=== PATIENT | female | born 1945 | race Caucasian/White ===

== ENCOUNTER → 2019-07-19 15:16 | Outpatient (BNVA) | payer MEDICARE, SELFPAY | PROVIDERS: Family Provider Nurse Practitioner; PCP Nurse Practitioner; Visit Provider Family Medicine | DX: E78.2 Mixed hyperlipidemia (principal); I10 Essential (primary) hypertension | CPT/HCPCS: 80053; 80061; 84443; 85025 ==

== ENCOUNTER → 2020-03-05 11:41 | Outpatient (BNVA) | payer MEDICARE, SELFPAY | PROVIDERS: Family Provider Nurse Practitioner; PCP Nurse Practitioner; Visit Provider Family Medicine | DX: E78.5 Hyperlipidemia, unspecified (principal); I10 Essential (primary) hypertension | CPT/HCPCS: 80053; 80061; 85025 ==

== ENCOUNTER → 2020-05-15 10:45 | Outpatient (BNVA) | payer MEDICARE, SELFPAY | PROVIDERS: Family Provider Nurse Practitioner; PCP Nurse Practitioner; Visit Provider Family Medicine | DX: M79.10 Myalgia, unspecified site (principal); R25.2 Cramp and spasm; E55.9 Vitamin D deficiency, unspecified | CPT/HCPCS: 80048; 82306; 83735; 85651; 86038 ==

== ENCOUNTER 2021-03-21 08:14 | Outpatient (CLI) | payer MEDICARE, MEDICAID, SELFPAY ==
--- NOTE | 2021-03-21 | CT_ITS ---
WS: [id number] CT ABDOMEN AND PELVIS WITH CONTRAST HISTORY: ABDOMINAL PAIN TECHNIQUE: Imaging performed of the abdomen and pelvis with IV contrast. Single phase imaging of the abdomen. Coronal and sagittal reformats are submitted. All CT scans at [facility] use at [address] one of these dose optimization techniques: automated exposure control; mA and/or kV adjustment per patient size (includes targeted exams where dose is matched to clinical indication); or iterative re construction. IV CONTRAST: Omnipaque 300; 95 mL IV. Oral contrast: Yes. DLP: 1055.45 mGycm COMPARISON: 03/06/2018 Lower thorax: Lung bases are clear. Heart is normal size. Moderate size hiatal hernia similar to the prior exam. Liver/biliary system: Normal size liver. Stable 3 mm hypodensity in the superior RIGHT liver. No bile duct dilatation. Normal portal vein. Gallbladder: Normal. No gallstones or wall thickening. No pericholecystic fluid. Pancreas: Normal size pancreas and pancreatic duct. No adjacent inflammation. Spleen: Normal size spleen. No mass or infarct. Adrenal glands: Normal. Right kidney: Multiple cortical hypodensities. Majority of these are too small to characterize stable since 2018. The largest is exophytic from the upper pole with a maximum diameter of 1.6 cm and stabl e. Left kidney: Large simple cyst from the upper pole measures 4.9 x 4.6 cm and stable. There is no fer l obstruction. There are a few additional hypodensities which are stable and too small to characteriz e. Aorta: Mild atherosclerosis with no aneurysm. Lymphadenopathy: None. Free fluid: None. GI tract: Normal appendix. Mild diffuse constipation. No GI tract obstruction or obstructing lesions identified. No significant diverticular disease. Abdominal wall: Unremarkable abdominal wall. No hernia. Pelvis: Prior hysterectomy. Prior urinary bladder suspension surgery. The visualized urinary bladder and pelvic structures are normal. No mass or fluid. Bones: Mild bilateral narrowing of the hip joints. Mild facet arthritis in the lower lumbar spine. CT/CT abdomen pelvis w con* [id number] IMPRESSION: 1. No acute abdominal or pelvic abnormalities. 2. Normal appendix. 3. Bilateral renal cysts and too small to characterize hypodensities but stabl e since 2018. 4. Mild atherosclerosis aorta. 5. Mild constipation.
[2021-03-21] MEDS: iohexol 300 mg/mL 50 mL Btl PO (09:00)
[2021-03-21] MEDS: iohexol 300 mg/mL 100 mL Btl IV (10:15)
== END 2021-03-21 08:15 | disposition home or self-care (01) ==
PROVIDERS: PCP Nurse Practitioner; Visit Provider Family Medicine
DX: R10.13 Epigastric pain (principal); R74.8 Abnormal levels of other serum enzymes; K59.00 Constipation, unspecified; I70.0 Atherosclerosis of aorta; Q61.02 Congenital multiple renal cysts
CPT/HCPCS: 74177; Q9967

== ENCOUNTER 2021-06-12 17:35 | Emergency (ER) | payer MEDICARE, MEDICAID, SELFPAY ==
[2021-06-12 17:55] VITALS: BP 220/106; PULSE 71; RESP 16; TEMP 36.6; O2SAT 97
--- NOTE | 2021-06-12 20:19 | ED_ITS ---
HPI - Animal Bite General: Chief Complaint: Animal Bite Stated Complaint: CAT BITE ON FINGER Time Seen by Provider: 06/12/21 18:07 History of Present Illness: HPI narrative: Cat bite to right forefinger. It was a wild cat that Nadya has been taking care of since . He has not had any vaccinations. Cat has not been acting abnormal. She went and get rid the cat after better. complaint: animal bite Onset (ago): hour(s) Animal: cat Description of animal: wild animal Mechanism: bite Location: other (Finger) Location - Extremities: Right: hand Pain description: sharp Severity scale (1-10): 1 Context: playing with animal Associated symptoms: Reports no associated symptoms; Deny chills, fever(s) or headache(s) Review of Systems Const: Denies: fever(s), chills or body aches Eyes: Denies: change in vision or blurry vision ENMT: Denies: throat pain or nasal congestion Card: Denies: chest pain or dyspnea on exertion Resp: Denies: dyspnea, productive cough or non-productive cough GI: Denies: abdominal pain, nausea or vomiting Musc: Denies: extremity pain Skin/Breast: Reports: other (Laceration right finger); Denies: rash Neuro: Denies: headache(s) Psych: Denies: anxiety or depression Dayron/Lymph: Denies: easy bruising PFSH ED PFSH: Medical History Hyperlipidemia Hypertension Surgical History History of hysterectomy (~2001) Social History Smoking and tobacco status: former smoker Alcohol intake: never Marital status: / Current occupational status: unemployed Physical Exam Const: COMMON NORMALS: no acute distress GENERAL APPEARANCE: cooperative Psych: COMMON NORMALS: mental status grossly normal Skin: OTHER: Lac right finger. Wound left open due to pain cat bite no need for stitches wound approximately 2 mm long. Course Vital Signs: Vital signs: Vital Signs Temperature 97.9 F 06/12/21 17:55 Pulse Rate 71 06/12/21 17:55 Respiratory Rate 16 06/12/21 17:55 Blood Pressure 220/106 06/12/21 17:55 Pulse Oximetry 97 06/12/21 17:55 Discharge Plan Discharge Prescriptions: No Action krill oil 500 mg capsule 500 mg PO DAILY RF: 0 coenzyme Q10 10 mg capsule 10 mg PO DAILY RF: 0 Tart Quiñonez Extract 1,000 mg capsule 1,000 mg PO DAILY RF: 0 ascorbate calcium (vitamin C) 500 mg tablet 500 mg PO DAILY RF: 0 Complete Multivitamin Tablet 1 tab PO DAILY RF: 0 cholecalciferol (vitamin D3) 100 mcg (4,000 unit) capsule 100 mcg PO DAILY RF: 0 diclofenac sodium [Voltaren Arthritis Pain] 1 % gel 2 g topical QID Qty: 100 RF: 0 telmisartan [Micardis] 40 mg tablet 40 mg PO DAILY Qty: 30 RF: 3 atorvastatin 40 mg tablet 40 mg PO DAILY Qty: 30 RF: 4 metoprolol succinate 100 mg tablet extended release 24 hr See Rx Instructions .ROUTE .COMPLEX Qty: 30 RF: 2 Coding Level of Care Code 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
[2021-06-12] MEDS: clindamycin 150 mg Capsule 300 MG PO (21:15)
[2021-06-12] MEDS: rabies vaccine 2.5 unit SDV IM (21:15)
== END 2021-06-12 21:57 | disposition home or self-care (01) ==
PROVIDERS: Emergency Provider Nurse Practitioner Family; PCP Family Medicine
DX: S61.250A Open bite of right index finger without damage to nail, initial encounter (principal); W55.01XA Bitten by cat, initial encounter; I10 Essential (primary) hypertension; E78.5 Hyperlipidemia, unspecified; Z87.891 Personal history of nicotine dependence; Z23 Encounter for immunization; Z20.3 Contact with and (suspected) exposure to rabies; Z29.14 Encounter for prophylactic rabies immune globulin
CPT/HCPCS: 90375; 90471; 90675; 96372; 99283

== ENCOUNTER 2021-06-15 11:02 | Emergency (ER) | payer MEDICARE, MEDICAID, SELFPAY ==
[2021-06-15 11:24] VITALS: BP 218/104; PULSE 60; RESP 14; TEMP 36.7; O2SAT 99
--- NOTE | 2021-06-15 11:44 | ED_ITS ---
HPI - Recheck/Abnormal Lab/Rx General: Chief Complaint: Recheck/Abnormal Lab/Rx Stated Complaint: RABIS VAC Time Seen by Provider: 06/15/21 11:38 Source: patient Mode of arrival: ambulatory Limitations: no limitations History of Present Illness: HPI narrative: Patient is a nice 75-year-old female presents to ED today for her day 3 rabies immunization. Patient was seen in our facility on 06/12 after a cat bite to her right middle finger. On that visit rabies immunoglobulin and rabies immunization were administered and patient was discharged home on oral antibiotics. Patient states her bite is healing well without signs of infection. She is doing well on the oral antibiotics. complaint: wound re-check and other (rabies series) Initial visit for: animal bite Returns today for: rabies shot Symptoms since prior visit: no new symptoms and improved Associated symptoms: none Review of Systems Const: Denies: fever(s), chills, body aches, fatigue or malaise GI: Denies: nausea or vomiting Musc: Denies: extremity pain, extremity swelling, joint pain or joint swelling Skin/Breast: Reports: other (cat bite to R middle finger; healing well ) Neuro: Denies: numbness in extremities, weakness in extremities or sensory changes PFS ED PFSH: Medical History (Updated 06/15/21 @ 11:52 by DELFINA Krishnan) Hyperlipidemia Hypertension Surgical History History of hysterectomy (~2001) Social History Smoking and tobacco status: former smoker Alcohol intake: never Marital status: / Current occupational status: unemployed Physical Exam Const: COMMON NORMALS: no acute distress, average body habitus, patient oriented x3, no limitations, healthy appearing, alert and well nourished HENMT: COMMON NORMALS: normocephalic and atraumatic HEAD & SCALP: normocephalic and atraumatic Extremity: NARRATIVE EXTREMITY EXAM: cat bite to R middle finger w/o redness/drainage Neuro: ESMER COMA SCALE: document GCS findings Savannah coma scale eye opening: Spontaneous Esmer coma scale verbal response: Orientated Esmer coma scale motor response: Obey commands Esmer coma scale total score: 15 COMMON NORMALS: patient oriented x3, moves all extremities, no focal motor deficits, no sensory deficits noted and gait normal SENSORIUM/ORIENTATION: Yes alert Course Vital Signs: Vital signs: Vital Signs Temperature 98.0 F 06/15/21 11:24 Pulse Rate 60 06/15/21 11:24 Respiratory Rate 14 06/15/21 11:24 Blood Pressure 218/104 06/15/21 11:24 Pulse Oximetry 99 06/15/21 11:24 MDM - Recheck/Abnormal Lab/Rx MDM Narrative: Medical decision making narrative: Patient given rabies immunization. Recommend continue series for repeat immunization on day 7, 14. Discharge Plan Discharge Patient Disposition: Home Clinical Impression: Need for immunization against rabies Condition: Stable Prescriptions: No Action krill oil 500 mg capsule 500 mg PO DAILY RF: 0 coenzyme Q10 10 mg capsule 10 mg PO DAILY RF: 0 Tart Quiñonez Extract 1,000 mg capsule 1,000 mg PO DAILY RF: 0 ascorbate calcium (vitamin C) 500 mg tablet 500 mg PO DAILY RF: 0 Complete Multivitamin Tablet 1 tab PO DAILY RF: 0 cholecalciferol (vitamin D3) 100 mcg (4,000 unit) capsule 100 mcg PO DAILY RF: 0 diclofenac sodium [Voltaren Arthritis Pain] 1 % gel 2 g topical QID Qty: 100 RF: 0 telmisartan [Micardis] 40 mg tablet 40 mg PO DAILY Qty: 30 RF: 3 atorvastatin 40 mg tablet 40 mg PO DAILY Qty: 30 RF: 4 metoprolol succinate 100 mg tablet extended release 24 hr See Rx Instructions .ROUTE .COMPLEX Qty: 30 RF: 2 clindamycin HCl 300 mg capsule 300 mg PO Q8H 7 Days Qty: 21 RF: 0 Discharge Orders: Discharge ED (Routine); Ordered 06/15/21 Ordered By: Geno Wolff Referrals: Stephon Santamaria MD [Primary Care Provider] - Patient Instructions: Rabies Vaccine (By injection) Coding Level of Care Code ED [employer] 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
[2021-06-15] MEDS: rabies vaccine 2.5 unit SDV IM (11:57)
== END 2021-06-15 12:06 | disposition home or self-care (01) ==
PROVIDERS: Emergency Provider Physician Assistant; PCP Family Medicine
DX: Z29.14 Encounter for prophylactic rabies immune globulin (principal); Z20.3 Contact with and (suspected) exposure to rabies; I10 Essential (primary) hypertension; E78.5 Hyperlipidemia, unspecified; Z87.891 Personal history of nicotine dependence; Z23 Encounter for immunization
CPT/HCPCS: 90471; 90675; 99282

== ENCOUNTER → 2022-07-28 15:45 | Outpatient (BNVA) | payer MEDICARE, MEDICAID, SELFPAY | PROVIDERS: PCP Family Medicine; Visit Provider Family Medicine | DX: Z51.81 Encounter for therapeutic drug level monitoring (principal); E78.2 Mixed hyperlipidemia; Z13.220 Encounter for screening for lipoid disorders; Z23 Encounter for immunization; E55.9 Vitamin D deficiency, unspecified | CPT/HCPCS: 80053; 80061; 85025 ==

== ENCOUNTER 2023-01-15 17:16 | Emergency (ER) | payer MEDICARE, MEDICAID, SELFPAY ==
[2023-01-15 17:24] VITALS: BP 226/103; PULSE 64; RESP 17; TEMP 36.4; O2SAT 99; BMI 27.1
--- NOTE | 2023-01-15 17:40 | ED_ITS ---
HPI - Allergic Reaction General: Chief complaint: Allergic Reaction Stated complaint: wasp sting/ hard to breath Time Seen by Provider: 01/15/23 17:18 History of Present Illness: HPI narrative: 77-year-old female comes in today with complaints of a wasp sting to the right axilla. Patient had taken 25 mg of diphenhydramine prior to coming to the ER. Patient reports feeling better since arriving to the ER reports no chest pain, shortness of breath, or nausea or vomiting. Patient appears nontoxic. Patient reports that she does have an EpiPen at home but did not use it due to the age of the EpiPen. Patient was concerned that she may need a refill for her EpiPen and came into the ER for treatment. Associated symptoms: Deny nausea or vomiting Review of Systems Const: Denies: fever(s) Card: Denies: chest pain Resp: Denies: dyspnea GI: Denies: nausea or vomiting Skin/Breast: Reports: new lesions PFS ED PFSH: Medical History History of trigger finger Dr Barnes Hyperlipidemia Hypertension Surgical History History of hysterectomy (~2001) Hx of cataract extraction Bilateral Social History Smoking and tobacco status: never smoked Alcohol intake: never Substance/Drug Use: never Marital status: / Current occupational status: unemployed Physical Exam Const: COMMON NORMALS: alert HENMT: COMMON NORMALS: normocephalic HEAD & SCALP: normocephalic MOUTH: Normal oral and palatal mucosa present THROAT: posterior oropharynx normal Neck/C-Spine: COMMON NORMALS: full ROM Resp: COMMON NORMALS: normal respiratory effort and clear to auscultation bilaterally AUSCULTATION: clear to auscultation bilaterally Cardio: COMMON NORMALS: regular rate and regular rhythm RATE: regular rate RHYTHM: regular rhythm GI: COMMON NORMALS: Soft to palpation and non-tender PALPATION: Yes Soft to palpation Extremity: COMMON NORMALS: no pedal edema Neuro: SENSORIUM/ORIENTATION: Yes alert Skin: LESIONS: lesion noted (Punctate lesion with surrounding erythema and swelling right axilla) Course Vital Signs: Vital signs: Vital Signs Temperature 97.6 F 01/15/23 17:24 Pulse Rate 64 01/15/23 17:24 Respiratory Rate 17 01/15/23 17:24 Blood Pressure 226/103 01/15/23 17:24 Pulse Oximetry 99 01/15/23 17:24 Oxygen Delivery Me thod Room Air 01/15/23 17:24 MDM - Allergic Reaction Medical Decision Making 77-year-old female comes in today with a wasp sting to the right axilla. Patient reports she was going outside when the wasp came down and stung her to the right axilla. On exam there is a area of redness with mild swelling approximately 4 cm circular with a centralized punctate lesion. Respirations are even lungs are clear to auscultation. Vital signs are normal except for some elevated blood pressure. Patient reports this is her normal blood pressure range and she does manage it with medications at home and denies any other symptoms such as severe headache or shortness of breath. Differential diagnosis includes anaphylaxis, allergic reaction, localized reaction to wasp sting. No signs of anaphylaxis or severe allergic reaction was noted at this time. Patient does have a localized reaction to the wasp sting. Reviewed exam with recommendations for treatment and follow-up. Patient reported understanding and agreed to plan. EpiPen was renewed. Discharge Plan Discharge Patient Disposition: Home Clinical Impression: Accidental wasp sting Condition: Stable Prescriptions: New Auvi-Q 0.3 mg/0.3 mL auto-injector 0.3 mg IM Q10M PRN (Reason: anaphylaxis) Qty: 2 0RF Rx Instructions: for 2 doses No Action hydrochlorothiazide 25 mg tablet 25 mg PO DAILY Qty: 30 6RF metoprolol succinate 100 mg tablet extended release 24 hr See Rx Instructions .ROUTE .COMPLEX Qty: 90 3RF Dose Instruction: TAKE 1 TABLET EVERY DAY Rx Instructions: TAKE 1 TABLET EVERY DAY atorvastatin 40 mg tablet See Rx Instructions .ROUTE .COMPLEX Qty: 90 2RF Dose Instruction: TAKE 1 TABLET EVERY NIGHT Rx Instructions: TAKE 1 TABLET EVERY NIGHT telmisartan 40 mg tablet See Rx Instructions .ROUTE .COMPLEX Qty: 90 3RF Dose Instruction: TAKE 1 TABLET EVERY DAY Rx Instructions: TAKE 1 TABLET EVERY DAY Discharge Orders: Discharge ED (Routine); Ordered 01/15/23 Ordered By: Jason Jeong Referrals: Stephon Santamaria MD [Primary Care Provider] - Discharge Diet: Usual diet Discharge Activity: Increase activity as tolerated Patient Instructions: Anaphylaxis (ED) Activity Restrictions/Additional Instructions: Home and rest. Continue with diphenhydramine, Benadryl, 25 mg 1 tablet every 4 hours as needed for itching or symptoms while sting. You can use acetaminophen or ibuprofen for pain. You can use topical hydrocortisone cream for further inflammation and irritation of the wasp sting area. Follow-up with primary care as needed. Return to ED for worsening symptoms or new concerns. Coding Level of Care Code ED Process Laboratory Specialist for Tana Barlow
[2023-01-15 17:57] VITALS: PULSE 59; O2SAT 99
== END 2023-01-15 17:58 | disposition home or self-care (01) ==
PROVIDERS: Emergency Provider Nurse Practitioner Family; PCP Family Medicine
DX: T63.461A Toxic effect of venom of wasps, accidental (unintentional), initial encounter (principal); I10 Essential (primary) hypertension; E78.5 Hyperlipidemia, unspecified
CPT/HCPCS: 99283

== ENCOUNTER → 2024-03-09 11:27 | Outpatient (BNVA) | payer MEDICARE, MEDICAID, SELFPAY | PROVIDERS: PCP Family Medicine; Visit Provider Family Medicine | DX: Z51.81 Encounter for therapeutic drug level monitoring (principal); E55.9 Vitamin D deficiency, unspecified; I10 Essential (primary) hypertension; Z78.0 Asymptomatic menopausal state; Z13.220 Encounter for screening for lipoid disorders | CPT/HCPCS: 80053; 80061; 82306; 85025 ==

== ENCOUNTER 2024-03-16 12:13 | Outpatient (CLI) | payer MEDICARE, SELFPAY ==
--- NOTE | 2024-03-16 13:00 | XR_ITS ---
WS: [id number] DEXA (DUAL ENERGY X-RAY ABSORPTIOMETRY) Bone mineral density was performed using a [employer] machine. HISTORY: Postmenopausal COMPARISON: None available. Lumbar spine BMD (L1-L4): 1.140 g/cm2 T score: -0.3 Z score: 1.5 Total hip BMD: Left: 0.852 g/cm2. T score: -1.2 Z score: 0.8 Right: 0.890 g/cm2. T score: -0.9 Z score: 1.1 10 year probability of a major osteoporotic fracture is 14.4%. XR/XR DEXA axial skeleton* [id number] IMPRESSION: OSTEOPENIA based upon the WHO classification for females.
== END 2024-03-16 12:14 | disposition home or self-care (01) ==
LOC: RAD 12:13
PROVIDERS: PCP Family Medicine; Visit Provider Family Medicine
DX: Z13.820 Encounter for screening for osteoporosis (principal); Z78.0 Asymptomatic menopausal state; M85.80 Other specified disorders of bone density and structure, unspecified site
CPT/HCPCS: 77080

== ENCOUNTER 2024-06-25 05:30 | Emergency (ER) | payer MEDICARE, SELFPAY ==
[2024-06-25 05:43] VITALS: BP 227/109; PULSE 71; RESP 20; TEMP 36.6; O2SAT 99; BMI 27.1
--- NOTE | 2024-06-25 06:16 | CTR_ITS ---
PROCEDURE INFORMATION: Exam: CT Head Without Contrast Exam date and time: 06/25/2024 6:23 AM Age: 78 years old Clinical indication: Injury or trauma; Fall; Blunt trauma (contusions or hematomas) TECHNIQUE: Imaging protocol: Computed tomography of the head without contrast. Radiation optimization: All CT scans at this facility use at least one of these dose optimization techniques: automated exposure control; mA and/or kV adjustment per patient size (includes targeted exams where dose is matched to clinical indication); or iterative reconstruction. COMPARISON: No relevant prior studies available. RADIATION DOSE METRICS: Total DLP (mGy-cm): 941.68 FINDINGS: Brain: Generalized global atrophy. No intracranial masses or mass effect. No midline shift. No abnormal extra-axial collections. No acute intracranial hemorrhage. Patchy hypodensity in the periventricular and subcortical white matter in keeping with chronic microvascular ischemic changes. Cerebral ventricles: Prominence of the ventricles commensurate with atrophy. No bobby hydrocephalus. Paranasal sinuses: Visualized sinuses are unremarkable. No fluid levels. Mastoid air cells: Visualized mastoid air cells are well aerated. Bones: Unremarkable. No acute fracture. Soft tissues: Unremarkable. CT/CT head wo con* [id number] IMPRESSION: No acute intracranial findings.
--- NOTE | 2024-06-25 06:17 | XRR_ITS ---
PROCEDURE INFORMATION: Exam: XR Pelvis Exam date and time: 06/25/2024 6:26 AM Age: 78 years old Clinical indication: Injury or trauma; Fall; Blunt trauma (contusions or hematomas); Bilateral; Pelvic region TECHNIQUE: Imaging protocol: Radiologic exam of the pelvis. Views: 1 or 2 view. COMPARISON: CT abdomen pelvis w con* [id number] 03/21/2021 9:59 AM FINDINGS: Bones/joints: No radiographic evidence of fracture. Soft tissues: There has been inguinal hernia repairs. XR/XR pelvis 1-2V* [id number] IMPRESSION: No radiographic evidence of fracture.
--- NOTE | 2024-06-25 06:20 | W.ED.FALL ---
HPI - Fall General: Chief Complaint: Fall Stated Complaint: dizzy fall hit head tailbone Time Seen by Provider: 06/25/24 06:15 History of Present Illness: 78-year-old female presents emergency department ambulatory with 2 of her daughters. Patient states that last night around 4 AM her granddaughter let her dog out. When the dog came back in the house, it was covered in snow because it has thick curly for her. She was dusting it off and cleaning up the snow. She had been bent over to do this. When she stood back up, she got a little lightheaded and dizzy and lost her balance. She reports that she did not lose consciousness but she was off balance enough she could not correct and fell backwards landing on her tailbone and hit the back of her head. She reports no loss of consciousness, did not feel dazed , no vomiting, no nausea, no confusion. She has not had any neurologic symptoms. Patient reports that her daughters insisted that she come get checked out. Patient declines any pain medication. She reports she has been ambulatory since the incident and does not think she has any broken bones. No pain of the spine/neck. Patient reports a mild soreness in the occipital area when she palpates and some mild soreness over her SI joints and tailbone when she palpates. Associated symptoms-after fall: Denies abdominal pain, chest pain, difficulty walking, headache(s) or neck pain Related Data Previous Rx's Medication Instructions Recorded epinephrine 0.3 mg/0.3 mL 0.3 mg (0.3 mL) IM Q10M PRN 07/06/23 injection, auto-injector (Auvi-Q) anaphylaxis #2 ea atorvastatin 40 mg tablet See Rx Instructions .Route 04/04/24 .COMPLEX #90 tabs metoprolol succinate 100 mg See Rx Instructions .Route 04/04/24 tablet,extended release 24 hr .COMPLEX #90 tabs Allergies Allergy/AdvReac Type Severity Reaction Status Date / Time amlodipine [From Norvasc] Allergy Unknown Verified 06/26/21 10:25 doxycycline Allergy Unknown Verified 06/26/21 10:25 lidocaine Allergy resp Verified 06/26/21 10:25 problems Penicillins Allergy hives Verified 06/26/21 10:25 triamcinolone [From Kenalog] Allergy Unknown Verified 06/26/21 10:25 Review of Systems General: Reports: 10 or more systems reviewed and unremarkable except in HPI and below Eyes: Denies: change in vision Card: Denies: chest pain, edema or syncope Resp: Denies: dyspnea or productive cough GI: Denies: abdominal pain, nausea, vomiting or diarrhea Musc: Denies: neck pain, back pain, extremity pain or extremity swelling Skin/Breast: Denies: rash or erythema Neuro: Denies: headache(s), numbness in extremities, weakness in extremities, lack of coordination or difficulty walking [facility] ED PFSH: Medical History History of trigger finger Dr Barnes Hypertension Hyperlipidemia Surgical History Hx of cataract extraction Bilateral History of hysterectomy (~2001) Family History Father CAD (coronary artery disease) Mother Spastic paralysis Sister Spastic paralysis Social History (Updated 03/09/24 @ 10:57 by Stephon Santamaria MD) Smoking and tobacco/nicotine status: never used tobacco/nicotine Alcohol intake: never Substance/Drug Use: never Marital status: / Current occupational status: unemployed 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 She is neurologically normal. Palpation of the neck and spine was unremarkable. C-spine cleared by Nexus criteria. No external stigmata of injury on the scalp, pain particular attention to the occiput. Palpation of both lower extremities from the toes up to the pelvis revealed only mild tenderness over the SI joints. She tolerates axial loading and distraction through both hips. Range of motion of the knees and hips was uninhibited. Patient reports she has some chronic pain in her knees which she can feel when I passively bend them but no new pain. Const: COMMON NORMALS: no limitations, alert and well nourished EXAM LIMITATIONS: no altered mental status HENMT: COMMON NORMALS: normocephalic, atraumatic and external ears normal HEAD & SCALP: normocephalic and atraumatic EXTERNAL EAR: Yes external ears normal MOUTH: no muffled voice Eye: COMMON NORMALS: EOMs intact bilaterally, conjunctivae normal and no scleral icterus CONJUNCTIVA: Yes conjunctivae normal Neck/C-Spine: GENERAL: Yes normal visual inspection and Yes trachea midline Resp: COMMON NORMALS: normal respiratory effort and No use of accessory muscles Cardio: COMMON NORMALS: regular rate RATE: regular rate Extremity: COMMON NORMALS: normal to inspection Neuro: COMMON NORMALS: moves all extremities, no focal motor deficits and no sensory deficits noted SENSORIUM/ORIENTATION: Yes alert SPEECH: speech normal Psych: COMMON NORMALS: mental status grossly normal, Normal thought process present, cooperative, normal affect and speech normal SPEECH: Yes normal speech THOUGHT PROCESS: Normal thought process present Skin: COMMON NORMALS: no rashes or lesions noted, turgor normal and no jaundice GENERAL SKIN EXAM: no rashes or lesions noted and turgor normal Course Vital Signs: Vital signs: Vital Signs Temperature 98 F 06/25/24 05:43 Pulse Rate 71 06/25/24 05:43 Respiratory Rate 20 H 06/25/24 05:43 Blood Pressure 210/114 06/25/24 07:35 Pulse Oximetry 99 06/25/24 05:43 MDM - Fall Medical Decision Making 78-year-old female stood back up after leaning over cleaning and sweeping. She got transiently dizzy and lightheaded and lost her balance. Low suspicion for cardiac etiology, hemorrhage, CVA, or other more malignant causes of presyncope. 1. Minor closed head injury without loss of consciousness. Per guidelines, will obtain CT scan of the head without contrast. 2. C-spine cleared by Nexus criteria. 3. She has mild tenderness over the SI joints. No pelvis instability. We will obtain x-ray of the pelvis. Low suspicion for fracture on pretest assessment. 4. Patient endorses she has chronically elevated blood pressure ranging from 1 40-1 80 at home. She has not taken her blood pressure medications today. She reports it typically goes up whenever she goes to the doctor. She is asymptomatic. Her blood pressure has actually been trending down with each time we take it since she checked in. Probably some of this is whitecoat hypertension. Since she is asymptomatic, we do not need to emergently lower it but I am going to give her a 0.1 mg clonidine. Patient denies any pain and therefore also analgesics. Update 7:35 AM X-ray of the pelvis did not show any acute traumatic abnormalities. CT scan of the head no acute findings. Blood pressure has remained high. She has not had any blood pressure medication during her visit as the nurses were held up and a critical room. I did order clonidine which she is getting now. Patient is only taking metoprolol succinate 50 mg daily. She is not on any other blood pressure medication. She was initially prescribed metoprolol succinate 100 mg daily but her heart rate is around 60 in the room. I hesitate to increase her metoprolol. Therefore I discussed with her and her daughters the need to discuss with primary care about using alternative medications to get blood pressure control. They indicate understanding. Lab Data Radiology Impressions Head CT 06/25/24 06:16 IMPRESSION: No acute intracranial findings. Pelvis X-Ray 06/25/24 06:17 IMPRESSION: No radiographic evidence of fracture. All radiology interpretation(s) finalized by discharge ED provider radiology interpretation(s): EP interpretation :x-ray of the pelvis, 1 view. No signs of asymmetry, fracture, dislocation. Discharge Plan Discharge Patient Disposition: Home Clinical Impression: Hypertension, uncontrolled Closed head injury without loss of consciousness Qualifiers: Encounter type: initial encounter Qualified Code(s): S09.90XA - Unspecified injury of head, initial encounter Contusion of pelvis Qualifiers: Encounter type: initial encounter Qualified Code(s): S30.0XXA - Contusion of lower back and pelvis, initial encounter Fall from standing Qualifiers: Encounter type: initial encounter Qualified Code(s): W19.XXXA - Unspecified fall, initial encounter Condition: Stable Prescriptions: Discontinued telmisartan 40 mg tablet See Rx Instructions .ROUTE .COMPLEX Qty: 90 2RF Dose Instruction: TAKE 1 TABLET EVERY DAY Rx Instructions: TAKE 1 TABLET EVERY DAY hydrochlorothiazide 25 mg tablet 25 mg PO DAILY Qty: 90 2RF No Action Auvi-Q 0.3 mg/0.3 mL auto-injector 0.3 mg IM Q10M PRN (Reason: anaphylaxis) Qty: 2 0RF Rx Instructions: for 2 doses metoprolol succinate 100 mg tablet extended release 24 hr See Rx Instructions .ROUTE .COMPLEX Qty: 90 2RF Dose Instruction: TAKE 1 TABLET EVERY DAY Rx Instructions: TAKE 1 TABLET EVERY DAY atorvastatin 40 mg tablet See Rx Instructions .ROUTE .COMPLEX Qty: 90 2RF Dose Instruction: TAKE 1 TABLET EVERY NIGHT Rx Instructions: TAKE 1 TABLET EVERY NIGHT Discharge Orders: Discharge ED (Routine); Ordered 06/25/24 Ordered By: Mahesh Suero Referrals: Stephon Santamaria MD [Primary Care Provider] - 4-7 days (Uncontrolled high blood pressure; taking only metoprolol 50mg daily) Discharge Activity: Increase activity as tolerated Patient Instructions: Head Injury (ED), Hypertension (ED) Activity Restrictions/Additional Instructions: 1. CT scan of your head did not show any bleeding or skull fracture. 2. We did not find any fracture in your pelvis. If you continue to have significant pain, advanced imaging such as CT scan or MRI may be indicated. 3. You have uncontrolled blood pressure. You have currently stated you are only taking 50 mg of metoprolol succinate daily. Your heart rate was around 60 bpm. You will need alternative medications in addition of metoprolol to control your blood pressure. Please contact your primary care doctor. Coding Level of Care Code ED Press Set Up for Tana Barlow
[2024-06-25 07:35] VITALS: BP 210/114
[2024-06-25] MEDS: cloNIDine 0.1 mg Tablet PO (07:35)
[2024-06-25 07:44] VITALS: BP 210/114; PULSE 63; O2SAT 100
== END 2024-06-25 07:45 | disposition home or self-care (01) ==
PROVIDERS: Emergency Provider Emergency Medicine; PCP Family Medicine
DX: S09.8XXA Other specified injuries of head, initial encounter (principal); S30.0XXA Contusion of lower back and pelvis, initial encounter; W19.XXXA Unspecified fall, initial encounter; I10 Essential (primary) hypertension; E78.5 Hyperlipidemia, unspecified
CPT/HCPCS: 70450; 72170; 99284

== ENCOUNTER → 2024-08-09 07:49 | Outpatient (BNVA) | payer MEDICARE, SELFPAY | PROVIDERS: PCP Family Medicine; Visit Provider Podiatrist Foot & Ankle Surgery | DX: M79.671 Pain in right foot (principal); M79.672 Pain in left foot; G62.89 Other specified polyneuropathies; Q66.72 Congenital pes cavus, left foot; Q66.71 Congenital pes cavus, right foot | CPT/HCPCS: 73630; 99203 ==

== ENCOUNTER 2024-12-06 19:00 | Emergency (ER) | payer MEDICARE, SELFPAY ==
--- OUTSIDE RECORDS SUMMARY | 2024-12-06 19:05 | XMS_ITS | Encounter Summary ---
Author Organization [facility] Address [address] [place] [address] Care Team Providers Care Manager Document Name Role Phone Unavailable Primary Care Provider Unavailabl e Encounter Details Date Type Department Care Team (Latest Contact Info) Description 10/31/1998 Outpatient Historical [facility] Dylon Arambula MD [address] [place] [phone] Other and unspecified angina pectoris (Primary Dx); Other dyspnea and respiratory abnormality Social History Tobacco Use Types Packs/Day Years Used Date Smoking Tobacco: Never Assessed Comments Unknown Sex and Gender Information Value Date Recorded Sex Assigned at Not on file 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
--- OUTSIDE RECORDS SUMMARY | 2024-12-06 19:05 | XMS_ITS | Encounter Summary ---
Author Organization [facility] Address [address] [place] [address] Care Team Providers Care Senior Contracts Manager Name Role Phone Unavailable Primary Care Provider Unavailabl e Encounter Details Date Type Department Care Team (Latest Contact Info) Description 10/01/1998 Outpatient Historical HIS [facility] Dylon Arambula MD [address] [place] [id number] Chest pain, unspecified (Primary Dx); Dyspepsia and other specified disorders of function of stomach; Need for prophylactic hormone replacement therapy (postmenopausal) Social History Tobacco Use Types Packs/Day Years Used Date Smoking Tobacco: Never Assessed Comments Unknown Sex and Gender Information Value Date Recorded Sex Assigned at Not on file 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
--- OUTSIDE RECORDS SUMMARY | 2024-12-06 19:05 | XMS_ITS | Encounter Summary ---
Author Organization [facility] Address [address] [place] [address] Care Team Providers Care Auto Washer Name Role Phone Unavailable Primary Care Provider Unavailabl e Encounter Details Date Type Department Care Team (Latest Contact Info) Description 02/24/1999 Outpatient Historical HIS [facility] Dylon Arambula MD [address] [place] [phone] Intermediate coronary syndrome (CMS/HCC) (Primary Dx) Social History Tobacco Use Types Packs/Day Years Used Date Smoking Tobacco: Never Assessed Comments Unknown Sex and Gender Information Value Date Recorded Sex Assigned at Not on file 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
--- OUTSIDE RECORDS SUMMARY | 2024-12-06 19:05 | XMS_ITS | Encounter Summary ---
Author Organization [facility] Address [address] [place] [address] Care Team Providers Care Service Order Expediter Name Role Phone Unavailable Primary Care Provider Unavailabl e Encounter Details Date Type Department Care Team (Latest Contact Info) Description 09/23/1998 Outpatient Historical HIS [facility] Dylon Arambula MD [address] [place] [phone] Chest pain, unspecified (Primary Dx) Social History Tobacco Use Types Packs/Day Years Used Date Smoking Tobacco: Never Assessed Comments Unknown Sex and Gender Information Value Date Recorded Sex Assigned at Not on file 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
--- OUTSIDE RECORDS SUMMARY | 2024-12-06 19:05 | XMS_ITS | Clinical Summary ---
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
--- OUTSIDE RECORDS SUMMARY | 2024-12-06 19:05 | XMS_ITS | Encounter Summary ---
Author Organization [facility] Address [address] [place] [address] Care Team Providers Care Rv Technician Name Role Phone Unavailable Primary Care Provider Unavailabl e Encounter Details Date Type Department Care Team (Latest Contact Info) Description 12/17/1998 Outpatient Historical HIS [facility] Dylon Arambula MD [address] [place] [phone] Dyspepsia and other specified disorders of function of stomach (Primary Dx); Need for prophylactic hormone replacement therapy (postmenopausal); Other and unspecified angina pectoris Social History Tobacco Use Types Packs/Day Years Used Date Smoking Tobacco: Never Assessed Comments Unknown Sex and Gender Information Value Date Recorded Sex Assigned at Not on file 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
--- OUTSIDE RECORDS SUMMARY | 2024-12-06 19:05 | XMS_ITS | Encounter Summary ---
Author Organization [facility] Address [address] [place] [address] Care Team Providers Care Hospice Clinical Supervisor Name Role Phone Unavailable Primary Care Provider Unavailabl e Encounter Details Date Type Department Care Team (Latest Contact Info) Description 11/14/1998 Outpatient Historical HIS [facility] Dylon Arambula MD [address] [place] [phone] Other and unspecified angina pectoris (Primary Dx) Social History Tobacco Use Types Packs/Day Years Used Date Smoking Tobacco: Never Assessed Comments Unknown Sex and Gender Information Value Date Recorded Sex Assigned at Not on file 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
[2024-12-06 19:17] VITALS: BP 225/101; PULSE 74; RESP 16; TEMP 36.8; O2SAT 99; BMI 27.3
--- NOTE | 2024-12-06 19:26 | CTR_ITS ---
PROCEDURE INFORMATION: Exam: CT Head Without Contrast Exam date and time: 12/06/2024 7:37 PM Age: 79 years old Clinical indication: Injury or trauma; Fall; Blunt trauma (contusions or hematomas); Without loss of consciousness TECHNIQUE: Imaging protocol: Computed tomography of the head without contrast. Radiation optimization: All CT scans at this facility use at least one of these dose optimization techniques: automated exposure control; mA and/or kV adjustment per patient size (includes targeted exams where dose is matched to clinical indication); or iterative reconstruction. COMPARISON: CT head wo con* [id number] 06/25/2024 6:23 AM RADIATION DOSE METRICS: Total DLP (mGy-cm): 1069.3 FINDINGS: Brain: There is mild cerebral atrophy. There is mild diffuse heterogeneity of the white matter attenuation, consistent with chronic white matter ischemic changes. Negative for acute intracranial hemorrhage. Negative for mass effect on the brain. Negative for midline shift of the brain. Cerebral ventricles: No ventriculomegaly. Paranasal sinuses: Visualized sinuses are unremarkable. No fluid levels. Mastoid air cells: Visualized mastoid air cells are well aerated. Bones: Unremarkable. No acute fracture. Soft tissues: Unremarkable. CT/CT head wo con* [id number] IMPRESSION: Negative for acute intracranial pathology.
--- NOTE | 2024-12-06 19:26 | XRR_ITS ---
PROCEDURE INFORMATION: Exam: XR Right Hip Exam date and time: 12/06/2024 7:27 PM Age: 79 years old Clinical indication: Injury or trauma; Fall; Blunt trauma (contusions or hematomas); Right; Hip TECHNIQUE: Imaging protocol: Radiologic exam of the right hip. Views: 1 view hip with pelvis when performed. COMPARISON: CR XR pelvis 1-2V* [id number] 06/25/2024 6:26 AM FINDINGS: Bones/joints: No acute right hip fracture or dislocation. Soft tissues: Unremarkable. XR/XR hip RT 2-3V wo/w pel* [id number] IMPRESSION: No acute bony abnormality. If symptoms persist, consider repeat plain films in 5-7 days. If there is clinical concern for internal derangement, then consider further evaluation with MRI, if MRI is clinically safe to obtain.
--- NOTE | 2024-12-06 19:26 | CTR_ITS ---
PROCEDURE INFORMATION: Exam: CT Cervical Spine Without Contrast Exam date and time: 12/06/2024 7:37 PM Age: 79 years old Clinical indication: Injury or trauma; Fall; Blunt trauma TECHNIQUE: Imaging protocol: Computed tomography of the cervical spine without contrast. Radiation optimization: All CT scans at this facility use at least one of these dose optimization techniques: automated exposure control; mA and/or kV adjustment per patient size (includes targeted exams where dose is matched to clinical indication); or iterative reconstruction. COMPARISON: CT head wo con* [id number] 06/25/2024 6:23 AM RADIATION DOSE METRICS: Total DLP (mGy-cm): 199 FINDINGS: Bones: No acute fracture. Normal alignment. No significant disc bulge or herniation. No severe spinal canal stenosis. No significant neural foraminal narrowing. The cervical spine demonstrates moderate degenerative changes at multiple levels. Lungs: Lung apices are normal. Soft tissues: Unremarkable. CT/CT cervical spin wo con* [id number] IMPRESSION: No acute cervical spine fracture.
--- NOTE | 2024-12-06 19:26 | CTR_ITS ---
PROCEDURE INFORMATION: Exam: CT Lumbar Spine Without Contrast Exam date and time: 12/06/2024 7:43 PM Age: 79 years old Clinical indication: Injury or trauma; Fall; Blunt trauma (contusions or hematomas) TECHNIQUE: Imaging protocol: Computed tomography of the lumbar spine without contrast. Radiation optimization: All CT scans at this facility use at least one of these dose optimization techniques: automated exposure control; mA and/or kV adjustment per patient size (includes targeted exams where dose is matched to clinical indication); or iterative reconstruction. COMPARISON: CT abdomen pelvis dated 03/21/2021 RADIATION DOSE METRICS: Total DLP (mGy-cm): 553.66 FINDINGS: Bones/joints: The lumbar vertebral body heights are maintained. Grade 1 anterolisthesis of L4 on L5 measuring up to 0.3 cm. Disc spaces are preserved. L1-L2: No significant disc bulge or herniation. No severe spinal canal stenosis. No significant neuroforaminal narrowing. L2-L3: Broad concentric disc bulge and bilateral facet arthropathy contributing to mild central canal stenosis. Mild left neuroforaminal narrowing L3-L4: Broad concentric disc bulge and bilateral facet arthropathy contributing to moderate central canal stenosis. Mild bilateral neuroforaminal narrowing. L4-L5: Broad concentric disc bulge and bilateral facet arthropathy contributing to severe central canal stenosis. Moderate bilateral neuroforaminal narrowing. L5-S1: No significant disc bulge or herniation. No severe spinal canal stenosis. No significant neuroforaminal narrowing. Soft tissues: Left renal cysts measuring up to 5.5 cm. Right renal cysts measuring up to [address]/CT lumbar spine wo con* [id number] IMPRESSION: No acute bony abnormality. Degenerative changes of the lumbar spine worst at the L4-L5 level where there is severe central canal stenosis. If symptoms persist, consider further evaluation with MRI, if there are no contraindications to obtaining a MRI scan. COMMENTS: Consistent with the [employer]'s Incidental Findings Committee white paper (J Am Lynsey Radiol 2018): Any incidental renal lesion less than 1 cm or classified as too small to characterize, or any incidental cystic renal lesion characterized as simple-appearing, is likely benign. No follow-up imaging is recommended for these lesions per consensus recommendations based on imaging criteria.
--- NOTE | 2024-12-06 19:27 | ED_ITS ---
HPI - Fall General: Chief Complaint: Fall Stated Complaint: fell out of chair, hit head and hip Time Seen by Provider: 12/06/24 19:10 Source: patient Mode of arrival: ambulatory Limitations: no limitations History of Present Illness: 79-year-old female who states that she w as trying to hang a curtain and fell out of the chair today at 430 states she had landed on her back and hip that she also hit her head she has right hip pain low back pain neck pain and head pain she rates a 4 out of 10 denies any loss of consciousness. Associated symptoms-after fall: Reports headache(s) and neck pain; Denies abdominal pain or chest pain Related Data Previous Rx's ?Medication ?Instructions ?Recorded epinephrine 0.3 mg/0.3 mL 0.3 mg (0.3 mL) IM Q10M PRN 07/06/23 injection, auto-injector (Auvi-Q) anaphylaxis #2 ea atorvastatin 40 mg tablet See Rx Instructions .Route 0 07/27/24 .COMPLEX #90 tabs metoprolol succinate 100 mg See Rx Instructions .Route 07/27/24 tablet,extended release 24 hr .COMPLEX #90 tabs bilateral pedraza balance braces #1 ea 08/09/24 Allergies Allergy/AdvReac Type Severity Reaction Status Date / Time amlodipine (From Norvasc) Allergy Unknown Verified 12/06/24 19:23 articaine (From Septocaine) Allergy Unknown Verified 12/06/24 19:23 doxycycline Allergy Unknown Verified 12/06/24 19:23 epinephrine (From Septocaine) Allergy Unknown Verified 12/06/24 19:23 lidocaine Allergy resp Verified 12/06/24 19:23 problems Penicillins Allergy hives Verified 12/06/24 19:23 triamcinolone (From Kenalog) Allergy Unknown Verified 12/06/24 19:23 Review of Systems Const: Denies: fever(s), chills, body aches or change in appetite ENMT: Denies: throat pain or dental pain Card: Denies: chest pain Resp: Denies: dyspnea GI: Denies: abdominal pain, nausea, vomiting or diarrhea Musc: Reports: neck pain and back pain Skin/Breast: Denies: rash Neuro: Reports: headache(s) PFS ED PFSH: Medical History History of trigger finger Dr Barnes Hypertension Hyperlipidemia Surgical History Hx of cataract extraction Bilateral History of hysterectomy (~2001) Family History Father CAD (coronary artery disease) Mother Spastic paralysis Sister Spastic paralysis Social History Smoking and tobacco/nicotine status: never used tobacco/nicotine Alcohol intake: never Substance/Drug Use: never Marital status: / Current occupational status: unemployed 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 [employer] Physical Exam Const: COMMON NORMALS: no acute distress, patient oriented x3 and healthy jani earing HENMT: COMMON NORMALS: normocephalic and atraumatic HEAD & SCALP: normocephalic and atraumatic Eye: COMMON NORMALS: conjunctivae normal CONJUNCTIVA: Yes conjunctivae normal Neck/C-Spine: OTHER: tenderness along cervical spine Chest: COMMONS NORMALS: normal inspection of the chest Resp: COMMON NORMALS: normal respiratory effort, No retractions, No use of accessory muscles and clear to auscultation bilaterally AUSCULTATION: clear to auscultation bilaterally Cardio: COMMON NORMALS: regular rate, regular rhythm and No murmurs present (Cardio) RATE: regular rate RHYTHM: regular rhythm Back/Pelvis: OTHER: tenderness along t spine Extremity: COMMON NORMALS: normal to inspection and full ROM NARRATIVE EXTREMITY EXAM: pt ambulatory no obvius deformity slight pain in r hip Neuro: COMMON NORMALS: patient oriented x3, moves all extremities and no focal motor deficits Psych: COMMON NORMALS: mental status grossly normal, Normal thought process present and cooperative THOUGHT PROCESS: Normal thought process present Skin: COMMON NORMALS: no rashes or lesions noted and no wounds GENERAL SKIN EXAM: no rashes or lesions noted Course Vital Signs: Vital signs: Vital Signs Temperature 98.2 F 12/06/24 19:17 Pulse Rate 70 12/06/24 19:55 Respiratory Rate 16 12/06/24 19:55 Blood Pressure 242/106 12/06/24 19:55 Pulse Oximetry 99 12/06/24 19:55 Oxygen Delivery Me thod Room Air 12/06/24 19:55 MDM - Fall Medical Decision Making Patient presents here with hip contusion closed head injury from a fall imaging here is all negative she is hypertensive she states that is what her blood pressure normally runs she is asymptomatic she stable for discharge. Lab Data Radiology Impressions Cervical Spine CT 12/06/24 19:26 IMPRESSION: No acute cervical spine fracture. Head CT 12/06/24 19:26 IMPRESSION: Negative for acute intracranial pathology. Hip/Pelvis X-Ray 12/06/24 19:26 IMPRESSION: No acute bony abnormality. If symptoms persist, consider repeat plain films in 5-7 days. If there is clinical concern for internal derangement, then consider further evaluation with MRI, if MRI is clinically safe to obtain. Lumbar Spine CT 12/06/24 19:26 IMPRESSION: No acute bony abnormality. Degenerative changes of the lumbar spine worst at the L4-L5 level where there is severe central canal stenosis. If symptoms persist, consider further evaluation with MRI, if there are no contraindications to obtaining a MRI scan. COMMENTS: Consistent with the [employer]'s Incidental Findings Committee white paper (J Am Lynsey Radiol 2018): Any incidental renal lesion less than 1 cm or classified as too small to characterize, or any incidental cystic renal lesion characterized as simple-appearing, is likely benign. No follow-up imaging is recommended for these lesions per consensus recommendations based on imaging criteria. All radiology interpretation(s) finalized by discharge Discharge Plan Discharge Patient Disposition: Home Clinical Impression: Fall, Contusion of hip Condition: Stable Prescriptions: No Action (DME) bilateral pedraza balance braces See Rx Instructions .Route .MEDSUPPLY Qty: 1 0RF Rx Instructions: As directed to the shoe ana Auvi-Q 0.3 mg/0.3 mL auto-injector 0.3 mg IM Q10M PRN (Reason: anaphylaxis) Qty: 2 0RF Rx Instructions: for 2 doses metoprolol succinate 100 mg tablet extended release 24 hr See Rx Instructions .ROUTE .COMPLEX Qty: 90 2RF Dose Instruction: TAKE 1 TABLET EVERY DAY Rx Instructions: TAKE 1 TABLET EVERY DAY atorvastatin 40 mg tablet See Rx Instructions .ROUTE .COMPLEX Qty: 90 2RF Dose Instruction: TAKE 1 TABLET EVERY NIGHT Rx Instructions: TAKE 1 TABLET EVERY NIGHT Discharge Orders: Discharge ED (Routine); Ordered 12/06/24 Ordered By: Hussain Monique Referrals: Stephon Santamaria MD [Primary Care Provider, [facility]] - 4-7 days Discharge Diet: Advance as tolerated Discharge Activity: Resume usual activity Patient Instructions: Hip Contusion (ED) Print Language: Cape Verdean Coding Level of Care Code ED Senior Health Educator for Tana Barlow
[2024-12-06] MEDS: metoprolol tartrate 50 mg Tablet PO (19:52)
[2024-12-06] MEDS: cloNIDine 0.1 mg Tablet PO (19:52)
[2024-12-06 19:55] VITALS: BP 242/106; PULSE 70; RESP 16; O2SAT 99
[2024-12-06 20:34] VITALS: BP 208/102; PULSE 72; RESP 16; O2SAT 98
[2024-12-06 20:42] VITALS: BP 186/98; PULSE 56; RESP 16; O2SAT 98
== END 2024-12-06 20:44 | disposition home or self-care (01) ==
PROVIDERS: Emergency Provider Emergency Medicine; PCP Family Medicine
DX: S70.01XA Contusion of right hip, initial encounter (principal); E78.5 Hyperlipidemia, unspecified; I10 Essential (primary) hypertension; W07.XXXA Fall from chair, initial encounter
CPT/HCPCS: 70450; 72125; 72131; 73502; 99284; J9999

== ENCOUNTER 2024-12-15 20:47 | Emergency (ER) | payer MEDICARE, SELFPAY ==
[2024-12-15 20:51] VITALS: BP 223/114; PULSE 90; RESP 16; TEMP 36.5; O2SAT 97
--- OUTSIDE RECORDS SUMMARY | 2024-12-15 21:01 | XMS_ITS | Encounter Summary ---
Author Organization [facility] Address [address] [place] [address] Care Team Providers Care Bindery Manager Name Role Phone Unavailable Primary Care Provider Unavailabl e Encounter Details Date Type Department Care Team (Latest Contact Info) Description 10/31/1998 Outpatient Historical HIS [facility] Dylon Arambula MD [address] [place] [phone] Other and unspecified angina pectoris (Primary Dx); Other dyspnea and respiratory abnormality Social History Tobacco Use Types Packs/Day Years Used Date Smoking Tobacco: Never Assessed Comments Unknown Sex and Gender Information Value Date Recorded Sex Assigned at Not on file 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
--- OUTSIDE RECORDS SUMMARY | 2024-12-15 21:01 | XMS_ITS | Encounter Summary ---
Author Organization [facility] Address [address] [place] [address] Care Team Providers Care Cavalry Scout Name Role Phone Unavailable Primary Care Provider Unavailabl e Encounter Details Date Type Department Care Team (Latest Contact Info) Description 02/24/1999 Outpatient Historical HIS [facility] Dylon Arambula MD [address] [place] [phone] Intermediate coronary syndrome (CMS/HCC) (Primary Dx) Social History Tobacco Use Types Packs/Day Years Used Date Smoking Tobacco: Never Assessed Comments Unknown Sex and Gender Information Value Date Recorded Sex Assigned at Not on file 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
--- OUTSIDE RECORDS SUMMARY | 2024-12-15 21:01 | XMS_ITS | Encounter Summary ---
Author Organization [facility] Address [address] [place] [address] Care Team Providers Care Candy Depositing Machine Operator Name Role Phone Unavailable Primary Care Provider Unavailabl e Encounter Details Date Type Department Care Team (Latest Contact Info) Description 09/23/1998 Outpatient Historical HIS [facility] Dylon Arambula MD [address] [place] [phone] Chest pain, unspecified (Primary Dx) Social History Tobacco Use Types Packs/Day Years Used Date Smoking Tobacco: Never Assessed Comments Unknown Sex and Gender Information Value Date Recorded Sex Assigned at Not on file 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
--- OUTSIDE RECORDS SUMMARY | 2024-12-15 21:01 | XMS_ITS | Encounter Summary ---
Author Organization [facility] Address [address] [place] [address] Care Team Providers Care Card Punching Machine Operator Name Role Phone Unavailable Primary Care Provider Unavailabl e Encounter Details Date Type Department Care Team (Latest Contact Info) Description 10/01/1998 Outpatient Historical HIS [facility] Dylon Arambula MD [address] [place] [phone] Chest pain, unspecified (Primary Dx); Dyspepsia and other specified disorders of function of stomach; Need for prophylactic hormone replacement therapy (postmenopausal) Social History Tobacco Use Types Packs/Day Years Used Date Smoking Tobacco: Never Assessed Comments Unknown Sex and Gender Information Value Date Recorded Sex Assigned at Not on file 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
--- OUTSIDE RECORDS SUMMARY | 2024-12-15 21:01 | XMS_ITS | Encounter Summary ---
Author Organization [facility] Address [address] [place] [address] Care Team Providers Care Clinical Research Analyst Name Role Phone Unavailable Primary Care Provider Unavailabl e Encounter Details Date Type Department Care Team (Latest Contact Info) Description 11/14/1998 Outpatient Historical HIS [facility] Dylon Arambula MD [address] [place] [phone] Other and unspecified angina pectoris (Primary Dx) Social History Tobacco Use Types Packs/Day Years Used Date Smoking Tobacco: Never Assessed Comments Unknown Sex and Gender Information Value Date Recorded Sex Assigned at Not on file Legal Sex Female 5:48 AM FOREST OFFICER Gender Identity Not on file Sexual Orientation Not on file documented as of this encounter Plan of Treatment Not on file documented as of this encounter Visit Diagnoses Diagnosis Other and unspecified angina pectoris- Primary documented in this encounter
--- OUTSIDE RECORDS SUMMARY | 2024-12-15 21:01 | XMS_ITS | Encounter Summary ---
[facility] Organization [facility] Address [address] [place] [address] Care Team Providers Care Certified Professional Ergonomist Name Role Phone Unavailable Primary Care Provider Unavailabl e Encounter Details Date Type Department Care Team (Latest Contact Info) Description 12/17/1998 Outpatient Historical HIS [facility] Dylon Arambula MD [address] [place] [phone] Dyspepsia and other specified disorders of function of stomach (Primary Dx); Need for prophylactic hormone replacement therapy (postmenopausal); Other and unspecified angina pectoris Social History Tobacco Use Types Packs/Day Years Used Date Smoking Tobacco: Never Assessed Comments Unknown Sex and Gender Information Value Date Recorded Sex Assigned at Not on file 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
--- OUTSIDE RECORDS SUMMARY | 2024-12-15 21:01 | XMS_ITS | Clinical Summary ---
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
--- NOTE | 2024-12-15 22:26 | ED_ITS ---
HPI - Wound/Laceration General: Chief Complaint: Wound/Laceration Stated Complaint: stitches came out Time Seen by Provider: 12/15/24 21:06 History of Present Illness: Patient presents to the emergency department for reapplication of Steri-Strips. Patient states her Steri-Strips have come off and was needing help to reapply them. Patient denies any complaints patient denies any fevers patient denies any increased swelling redness or concerns for infection. Patient denies any f ever Related Data Previous Rx's ?Medication ?Instructions ?Recorded bilateral pedraza balance braces #1 ea 08/09/24 sulfamethoxazole 800 1 tab PO BID 7 days #14 tabs 12/14/24 mg-trimethoprim 160 mg tablet (Bactrim DS) Allergies Allergy/AdvReac Type Severity Reaction Status Date / Time amlodipine (From Norvasc) Allergy Unknown Verified 12/15/24 20:54 articaine (From Septocaine) Allergy Unknown Verified 12/15/24 20:54 doxycycline Allergy Unknown Verified 12/15/24 20:54 epinephrine (From Septocaine) Allergy Unknown Verified 12/15/24 20:54 lidocaine Allergy resp Verified 12/15/24 20:54 problems Penicillins Allergy hives Verified 12/15/24 20:54 triamcinolone (From Kenalog) Allergy Unknown Verified 12/15/24 20:54 Review of Systems General: Reports: 10 or more systems reviewed and unremarkable except in HPI and below PFSH ED PFSH: Medical History History of trigger finger Dr Barnes Hypertension Hyperlipidemia Surgical History Hx of cataract extraction Bilateral History of hysterectomy (~2001) Family History Father CAD (coronary artery disease) Mother Spastic paralysis Sister Spastic paralysis Social History Smoking and tobacco/nicotine status: never used tobacco/nicotine Alcohol intake: never Substance/Drug Use: never Marital status: / Current occupational status: unemployed 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 Wound cleansed, flushed extensively and Steri-Strips reapplied Course Vital Signs: Vital signs: Vital Signs Temperature 97.7 F 12/15/24 20:51 Pulse Rate 90 12/15/24 20:51 Respiratory Rate 16 12/15/24 20:51 Blood Pressure 223/114 12/15/24 20:51 Pulse Oximetry 97 12/15/24 20:51 Oxygen Delivery Me thod Room Air 12/15/24 20:51 MDM - Wound/Laceration Medical Decision Making Patient is well-appearing nontoxic and in no acute distress. Patient presents to the emergency department for reapplication of Steri-Strips. Patient states her Steri-Strips have come off and was needing help to reapply them. Patient denies any complaints patient denies any fevers patient denies any increased swelling redness or concerns for infection. Patient denies any fever wound was cleansed irrigated and Steri-Strips reapplied. Patient was advised to continue take her medications as previously prescribed. Wound care instructions were discussed follow-up discussed and return precautions advised. Patient is medically cleared and appropriate for discharge No radiology studies performed this visit Discharge Plan Discharge Patient Disposition: Home Clinical Impression: Visit for wound care Condition: Stable Prescriptions: No Action (DME) bilateral pedraza balance braces See Rx Instructions .Route .MEDSUPPLY Qty: 1 0RF Rx Instructions: As directed to the elva eprez sulfamethoxazole-trimethoprim [Bactrim DS] 800-160 mg tablet 1 tab PO BID 7 Days Qty: 14 0RF Discharge Orders: Discharge ED (Routine); Ordered 12/15/24 Ordered By: Kimmy Terrell Referrals: Stephon Santamaria MD [Primary Care Provider, [facility]] Discharge Diet: Advance as tolerated Discharge Activity: Increase activity as tolerated Patient Instructions: Opioid Safety, Pain Management, Patient Portal & Gisell Inst ructions Activity Restrictions/Additional Instructions: Continue to take meds as prescribed Return to ER with any concerns or worsening of symptoms Print Language: Romanian Coding Level of Care Code ED Oil Pipeline Dispatcher for Tana Barlow
== END 2024-12-15 22:42 | disposition home or self-care (01) ==
PROVIDERS: Emergency Provider Registered Nurse; PCP Family Medicine
DX: Z48.00 Encounter for change or removal of nonsurgical wound dressing (principal); E78.5 Hyperlipidemia, unspecified; I10 Essential (primary) hypertension
CPT/HCPCS: 99282

== ENCOUNTER → 2024-12-26 08:30 | Outpatient (BNVA) | payer MEDICARE, SELFPAY | PROVIDERS: PCP Family Medicine; Visit Provider Family Medicine | DX: Z00.00 Encounter for general adult medical examination without abnormal findings (principal); Z51.81 Encounter for therapeutic drug level monitoring; Z13.6 Encounter for screening for cardiovascular disorders | CPT/HCPCS: 80053; 80061; 85025 ==

== ENCOUNTER 2025-06-05 15:39 | Outpatient (CLI) | payer MEDICARE, SELFPAY ==
--- NOTE | 2025-06-05 16:00 | MRR_ITS ---
PROCEDURE INFORMATION: Exam: MR Head Without and With Contrast Exam date and time: 06/05/2025 4:13 PM Age: 79 years old Clinical indication: Dizziness; Vertigo, concern for cerebellar stroke. Episodes off everything black and back to normal . ; additional info: Vertigo, concern for cerebellar stroke, this week if possible. If not, early next week TECHNIQUE: Imaging protocol: Magnetic resonance imaging of the head without and with contrast. Contrast material: MULTIHANCE; Contrast volume: 12 ml; Contrast route: INTRAVENOUS (IV); COMPARISON: CT head wo con* [id number] 12/06/2024 7:37 PM FINDINGS: Brain: Mild diffuse cerebral atrophy is noted. Cerebral ventricles: Normal. No ventriculomegaly. Bones: There is a 9 mm diameter dural-based, enhancing nodule lying in the medial portion of the right temporal fossa. The nodule is confluence with the medial wall of the temporal fossa and lies immediately lateral to the right cavernous sinus. The nodule lies immediately inferior to the right middle cerebral artery M1 segment. Paranasal sinuses: Normal as visualized. No acute sinusitis. Mastoid air cells: Normal as visualized. No mastoid effusion. Orbital cavities: Unremarkable. Soft tissues: Unremarkable. MR/MR head wo/w con [id number] IMPRESSION: 1. 9 mm enhancing dural-based nodule in the right temporal fossa. Primary consideration would include meningioma 2. Mild cerebral atrophy
[2025-06-05] MEDS: gadobenate dimeglumine 20 mL vial 12 ML IV (16:38)
== END 2025-06-05 15:40 | disposition home or self-care (01) ==
LOC: RAD 15:41
PROVIDERS: PCP Family Medicine; Visit Provider Family Medicine
DX: R42 Dizziness and giddiness (principal); D32.0 Benign neoplasm of cerebral meninges; G31.9 Degenerative disease of nervous system, unspecified
CPT/HCPCS: 70553

== ENCOUNTER 2025-06-08 17:25 | Emergency (ER) | payer MEDICARE, SELFPAY ==
[2025-06-08] VITALS (19 sets, daily range): BP systolic 124–259; BP diastolic 61–116; PULSE 69–83; RESP 16; TEMP 36.9; O2SAT 97–100; BMI 27.5
--- NOTE | 2025-06-08 17:26 | XRR_ITS ---
PROCEDURE INFORMATION: Exam: XR Chest Exam date and time: 06/08/2025 7:46 PM Age: 79 years old Clinical indication: Other: General weakness TECHNIQUE: Imaging protocol: Radiologic exam of the chest. Views: 1 view. COMPARISON: CT cervical spin wo con* [id number] 12/06/2024 7:37 PM FINDINGS: Lungs: Emphysematous changes. Pleural spaces: Unremarkable. No pleural effusion. No pneumothorax. Heart/Mediastinum: Cardiomegaly. Bones/joints: Unremarkable. XR/XR chest 1V portable [id number] IMPRESSION: 1. Negative for infiltrate 2. Cardiomegaly. 3. Emphysematous changes.
--- OUTSIDE RECORDS SUMMARY | 2025-06-08 17:29 | XMS_ITS | Encounter Summary ---
Author Organization [employer] [facility] Address [address] [place] [address] Care Team Providers Care Stock Broker Supervisor Name Role Phone Unavailable Primary Care Provider Unavailabl e Encounter Details Date Type Department Care Team (Latest Contact Info) Description 02/24/1999 Outpatient Historical HIS [facility] Dylon Arambula MD [address] [place] [phone] Intermediate coronary syndrome (CMS/HCC) (Primary Dx) Social History Tobacco Use Types Packs/Day Years Used Date Smoking Tobacco: Never Assessed Comments Unknown Sex and Gender Information Value Date Recorded Sex Assigned at Not on file Legal 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
--- OUTSIDE RECORDS SUMMARY | 2025-06-08 17:29 | XMS_ITS | Encounter Summary ---
Author Organization [employer] [facility] Address [address] [place] [address] Care Team Providers Care Immigration Coordinator Name Role Phone Unavailable Primary Care Provider Unavailabl e Encounter Details Date Type Department Care Team (Latest Contact Info) Description 11/14/1998 Outpatient Historical HIS [facility] Dylon Arambula MD [address] [place] [address] Other and unspecified angina pectoris (Primary Dx) Social History Tobacco Use Types Packs/Day Years Used Date Smoking Tobacco: Never Assessed Comments Unknown Sex and Gender Information Value Date Recorded Sex Assigned at Not on file 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
--- OUTSIDE RECORDS SUMMARY | 2025-06-08 17:29 | XMS_ITS | Encounter Summary ---
Author Organization [employer] [facility] Address [address] [place] [address] Care Team Providers Care Wood Carver Name Role Phone Unavailable Primary Care Provider Unavailabl e Encounter Details Date Type Department Care Team (Latest Contact Info) Description 10/31/1998 Outpatient Historical [facility] Dylon Arambula MD [address] [place] [phone] Other and unspecified angina pectoris (Primary Dx); Other dyspnea and respiratory abnormality Social History Tobacco Use Types Packs/Day Years Used Date Smoking Tobacco: Never Assessed Comments Unknown Sex and Gender Information Value Date Recorded Sex Assigned at Not on file Legal Sex Female 5:48 AM EMBEDDED ENGINEER Gender Identity Not on file Sexual Orientation Not on file documented as of this encounter Plan of Treatment Not on file documented as of this encounter Visit Diagnoses Diagnosis Other and unspecified angina pectoris- Primary Other dyspnea and respiratory abnormality documented in this encounter
--- OUTSIDE RECORDS SUMMARY | 2025-06-08 17:29 | XMS_ITS | Clinical Summary ---
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
--- OUTSIDE RECORDS SUMMARY | 2025-06-08 17:29 | XMS_ITS | Encounter Summary ---
Author Organization [employer] [facility] Address [address] [place] [address] Care Team Providers Care Sas Programmer Name Role Phone Unavailable Primary Care Provider Unavailabl e Encounter Details Date Type Department Care Team (Latest Contact Info) Description 10/01/1998 Outpatient Historical HIS [facility] Dylon Arambula MD [address] [place] [phone] Chest pain, unspecified (Primary Dx); Dyspepsia and other specified disorders of function of stomach; Need for prophylactic hormone replacement therapy (postmenopausal) Social History Tobacco Use Types Packs/Day Years Used Date Smoking Tobacco: Never Assessed Comments Unknown Sex and Gender Information Value Date Recorded Sex Assigned at Not on file 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
--- OUTSIDE RECORDS SUMMARY | 2025-06-08 17:29 | XMS_ITS | Encounter Summary ---
Author Organization [facility] Address [address] [facility] [place] [address] Care Team Providers Care Grain Picker Name Role Phone Unavailable Primary Care Provider Unavailabl e Encounter Details Date Type Department Care Team (Latest Contact Info) Description 12/17/1998 Outpatient Historical HIS [facility] Dylon Arambula MD [address] [place] [phone] Dyspepsia and other specified disorders of function of stomach (Primary Dx); Need for prophylactic hormone replacement therapy (postmenopausal); Other and unspecified angina pectoris Social History Tobacco Use Types Packs/Day Years Used Date Smoking Tobacco: Never Assessed Comments Unknown Sex and Gender Information Value Date Recorded Sex Assigned at Not on file 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
--- OUTSIDE RECORDS SUMMARY | 2025-06-08 17:29 | XMS_ITS | Encounter Summary ---
Author Organization [employer] [facility] Address [address] [place] [address] Care Team Providers Care Director Of Business Operations Name Role Phone Unavailable Primary Care Provider Unavailabl e Encounter Details Date Type Department Care Team (Latest Contact Info) Description 09/23/1998 Outpatient Historical HIS [facility] Dylon Arambula MD [address] [place] [phone] Chest pain, unspecified (Primary Dx) Social History Tobacco Use Types Packs/Day Years Used Date Smoking Tobacco: Never Assessed Comments Unknown Sex and Gender Information Value Date Recorded Sex Assigned at Not on file 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
--- NOTE | 2025-06-08 18:08 | ECG_ITS ---
[employer] [employer] [facility] Test Date: 2025-06-08 Pat Name: Nadya Pop Department: Room: Gender: Female Alpine Patroller: : 1945 Requested By: Hussain Monique Order Number: [id number] Reading MD: MARIELLE CARPENTER Measurements Intervals [place] Rate: 82 P: 50 GA: 166 QRS: -55 QRSD: 111 T: 114 QT: 385 QTc: 451 Interpretive Statements SINUS RHYTHM LEFT ANTERIOR FASCICULAR BLOCK [QRS AXIS <= -45, QR IN I, RS IN II] LEFT VENTRICULAR HYPERTROPHY AND ST-T CHANGE [VOLTAGE CRITERIA PLUS ST/T ABNORMALITY] POSSIBLE ANTERIOR MYOCARDIAL INFARCTION , OF INDETERMINATE AGE [30 ms Q WAVE IN V3/V4, OR R < 0.2 mV IN V4] Compared to ECG 03/06/2018 15:12:33 Left anterior fascicular block now present Sinus bradycardia no longer present Left-axis deviation no longer present ST (T wave) deviation still present Myocardial infarct finding still present Electronically Signed On 06-10-2025 23:01:03 PLASTER FOREMAN by MARIELLE CARPENTER [email or web address]
[2025-06-08 20:04] LABS: Hematocrit 48.3 % (36-47); Hemoglobin 16.30 g/dL (11.27-16.99); Mean Corpuscular HGB Conc 33.7 g/dL (30-55); Mean Corpuscular Hemoglobin 29.1 pg (27-33); Mean Corpuscular Volume 86.1 fl (85-98); Nucleated Red Blood Cells % 0 %; Platelet Count 259 10^3/cmm (157-399); Red Blood Count 5.61 10^6/uL (3.85-5.65); White Blood Count 7.03 10^3/uL (3.29-11.43)
--- NOTE | 2025-06-08 20:07 | ED_ITS ---
HPI - Weakness 2 General: Chief complaint: Weakness Stated complaint: lethargic / dizzy Time Seen by Provider: 06/08/25 20:06 History of Present Illness: 79-year-old female presents emergency ro om complaining of fatigue just generally not feeling well she has had at times some unsteadiness. She had been seeing her primary care doctor and this been going on for last several weeks. Did an MRI of the brain she looked in the patient portal the MRI report reads that there is dural based nodule that is approximately 9 mm in the right temporal fossa suspected to be a meningioma. Patient has no difficulty with speech swallowing or vision. At times she feels unsteady on her feet but is not vertiginous in nature. According to the notes from the MRI primary care physician was concerned about a cerebellar stroke. She has no strokelike symptoms at this time. Associated symptoms: Denies chest pain, chills, dysuria or fever(s) Related Data Home Medications ?Medication ?Instructions ?Recorded ?Confirmed Calcium 2 gummy PO DAILY 03/12/25 Elderberry PO 03/12/25 06/11/25 biotin 1 mg capsule 1 mg PO DAILY 03/12/2506/11 Previous Rx's ?Medication ?Instructions ?Recorded bilateral pedraza balance braces #1 ea 08/09/24 epinephrine 0.3 mg/0.3 mL 0.3 mg (0.3 mL) IM Q15M PRN 03/12/25 injection, auto-injector (EpiPen) anaphylaxis #2 ea losartan 25 mg tablet 25 mg PO DAILY #30 tabs 07/08 aspirin 81 mg tablet 81 mg PO DAILY #30 tabs 05/14 12/06 atorvastatin 40 mg tablet (Lipitor) 40 mg PO DAILY #30 tabs 05/29/25 clopidogrel 75 mg tablet (Plavix) 75 mg PO DAILY #21 t abs 05/29/25 cephalexin 500 mg capsule 500 mg PO TID 7 days #21 cap s 06/08/25 losartan 50 mg tablet 50 mg PO DAILY #30 tabs 05/15 12/06 metoprolol succinate 25 mg 25 mg PO DAILY #30 tabs tablet,extended release 24 hr (Toprol XL) Allergies Allergy/AdvReac Type Severity Reaction Status Date / Time amlodipine (From [facility]) Allergy Unknown Verified 12/15/24 20:54 articaine (From Septocaine) Allergy Unknown Verified 12/15/24 20:54 doxycycline Allergy Unknown Verified 12/15/24 20:54 epinephrine (From Septocaine) Allergy Unknown Verified 12/15/24 20:54 lidocaine Allergy resp Verified 12/15/24 20:54 problems Penicillins Allergy hives Verified 12/15/24 20:54 triamcinolone (From Kenalog) Allergy Unknown Verified 12/15/24 20:54 Review of Systems 2 Const: Denies: fever(s) or chills Card: Denies: chest pain Resp: Denies: dyspnea GI: Denies: abdominal pain : Denies: dysuria, urinary frequency or urinary urgency Musc: Denies: neck pain or back pain Skin/Breast: Denies: rash PFSH ED 2 PFSH: Medical History History of trigger finger Dr Barnes Hypertension Hyperlipidemia Surgical History Hx of cataract extraction Bilateral History of hysterectomy (~2001) Family History Father CAD (coronary artery disease) Mother Spastic paralysis Sister Spastic paralysis Social History Smoking and tobacco/nicotine status: unknown if used tobacco/nicotine Alcohol intake: never Substance/Drug Use: never Marital status: / Current occupational status: unemployed 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 [employer] Physical Exam 2 Const: COMMON NORMALS: no acute distress GENERAL APPEARANCE: cooperative and comfortable ORIENTATION/CONSCIOUSNESS: Yes awake, Yes oriented to person, Yes oriented to place and Yes oriented to time HENMT: COMMON NORMALS: normocephalic, atraumatic and hearing grossly normal bilaterally HEAD & SCALP: normocephalic and atraumatic Resp: COMMON NORMALS: normal respiratory effort, No retractions, No use of accessory muscles and clear to auscultation bilaterally AUSCULTATION: clear to auscultation bilaterally Cardio: COMMON NORMALS: regular rate, regular rhythm and No murmurs present (Cardio) RATE: regular rate RHYTHM: regular rhythm GI: COMMON NORMALS: Soft to palpation and No hepatosplenomegaly present A USCULTATION: Yes normoactive bowel sounds PALPATION: Yes Soft to palpation, No Tenderness to palpation present (GI), No Guarding due to palpation present (GI) and Yes No hepatosplenomegaly present Extremity: COMMON NORMALS: normal to inspection, capillary refill normal, no clubbing, cyanosis or edema, no calf tenderness and no pedal edema Neuro: SENSORIUM/ORIENTATION: Yes oriented to person, Yes oriented to place and Yes oriented to time Skin: COMMON NORMALS: no rashes or lesions noted GENERAL SKIN EXAM: no rashes or lesions noted Course 2 Vital Signs: Vital signs: Vital Signs Temperature 98.5 F 06/08/25 17:53 Pulse Rate 81 06/08/25 23:09 Respiratory Rate 16 06/08/25 17:53 Blood Pressure 166/88 06/08/25 23:09 Pulse Oximetry 98 06/08/25 23:09 Oxygen Delivery Me thod Room Air 06/08/25 17:53 MDM - Weakness Medical Decision Making Medical decision making Social determinants: None I reviewed the patient's medical record. I reviewed the patient's current home meds. Alternate historians: Family members at the bedside Differential diagnosis: Migraine headache, meningioma, accelerated hypertension, TIA versus CVA Lab Review: Labs reviewed CBC white count normal hemoglobin 16.3. Chemistries potassium 3.3 sodium 143 BUN 15 creatinine 0.9 alk phos mildly elevated 117. UA shows 6-10 white blood cells per high-power field positive nitrites trace leukocyte esterase Imaging: Chest x-ray no acute infiltrate no cardiomegaly some mild hyperinflation no effusions. Assessment of risk Level of risk: Low Hospitalization considerations: Unlikely for need for hospitalization Reexamination: Unchanged Assessment and plan: Neurologically intact no focal neurologic deficits noted reviewed previous MRI shows questionable meningioma. She has no signs of acute stroke or TIA. Suspect her headache is related to her blood pressure. She also was noted to have a mild cystitis. Treat cystitis cephalexin increase losartan to 50 mg daily change metoprolol to 25 XL daily and follow-up with primary care within the next week Medical Records I reviewed the patient's medical records. Lab Data I reviewed the patient's lab results. 06/08/25 19:58 06/08/25 19:58 Radiology Impressions Chest X-Ray 06/08/25 17:26 IMPRESSION: 1. Negative for infiltrate 2. Cardiomegaly. 3. Emphysematous changes. Laboratory Results WBC 7.03 10^3/uL (3.29-11.43) 06/08/25 19:58 RBC 5.61 10^6/uL (3.85-5.65) 06/08/25 19:58 Hgb 16.30 g/dL (11.27-16.99) 06/08/25 19:58 Hct 48.3 % (36-47) H 06/08/25 19:58 MCV 86.1 fl (85-98) 06/08/25 19:58 MCH 29.1 pg (27-33) 06/08/25 19:58 MCHC 33.7 g/dL (30-55) 06/08/25 19:58 RDW 12.8 % (12.1-15.1) 06/08/25 19:58 Plt Count 259 10^3/cmm (157-399) 06/08/25 19:58 MPV 9.5 fL (7.4-10.4) 06/08/25 19:58 Neut % (Auto) 56.9 % 06/08/25 19:58 Lymph % (Auto) 32.9 % 06/08/25 19:58 Mclennan % (Auto) 6.3 % 06/08/25 19:58 Eos % (Auto) 2.8 % 06/08/25 19:58 Baso % (Auto) 1.0 % 06/08/25 19:58 Neut # (Auto) 4.00 10^3/uL (1.8-7.7) 06/08/25 19:58 Lymph # (Auto) 2.3 10^3/uL (0.8-4.8) 06/08/25 19:58 Mclennan # (Auto) 0.4 10^3/uL (0.2-0.9) 06/08/25 19:58 Eos # (Auto) 0.2 10^3/uL (0.0-0.8) 06/08/25 19:58 Baso # (Auto) 0.1 10^3/uL (0.0-0.1) 06/08/25 19:58 Nucleated RBC % (auto) 0 % 06/08/25 19:58 Nucleated RBCs # 0.0 /100WBC 06/08/25 19:58 Sodium 143 mmol/L (136-145) 06/08/25 19:58 Potassium 3.3 mmol/L (3.5-5.1) L 06/08/25 19:58 Chloride 103 mmol/L (98-107) 06/08/25 19:58 Carbon Dioxide 26 mmol/L (22-29) 06/08/25 19:58 Anion Gap 17.3 (5-19) 06/08/25 19:58 BUN 15 mg/dL (8-23) 06/08/25 19:58 Creatinine 0.9 mg/dL (0.5-0.9) 06/08/25 19:58 GFR Calculation Not Reportable 06/08/25 19:58 Glucose 90 mg/dL (65-115) 06/08/25 19:58 Calculated Osmolality 296 mOsm/kg (285-295) H 06/08/25 19:58 Calcium 10.0 mg/dL (8.5-10.5) 06/08/25 19:58 Total Bilirubin 0.6 mg/dL (0.15-1.2) 06/08/25 19:58 AST 24 U/L (0-32) 06/08/25 19:58 ALT 18 U/L (0-33) 06/08/25 19:58 Alkaline Phosphatase 117 U/L (35-105) H 06/08/25 19:58 Total Protein 8.4 g/dL (6.6-8.7) 06/08/25 19:58 Albumin 5.0 g/dL (3.5-5.2) 06/08/25 19:58 Globulin 3.4 g/dL (1.3-4.6) 06/08/25 19:58 Lipase 62 U/L (13-60) H 06/08/25 19:58 Urine Color Yellow (Yellow) 06/08/25 20:31 Urine Appearance Clear (CLEAR) 06/08/25 20:31 Urine pH 7.0 (5-7) 06/08/25 20:31 Ur Specific [place] 1.011 (1.005-1.030) 06/08/25 20:31 Urine Protein Negative (Negative) 06/08/25 20:31 Urine Glucose (UA) Negative (Normal) 06/08/25 20:31 Urine Ketones Negative (Negative) 06/08/25 20:31 Urine Blood Negative (Negative) 06/08/25 20:31 Urine Nitrate Positive (Negative) A 06/08/25 20:31 Urine Bilirubin Negative (Negative) 06/08/25 20:31 Urine Urobilinogen 0.2 mg/dL (Negative) 06/08/25 20:31 Ur Leukocyte Esterase Trace (Negative) A 06/08/25 20:31 Urine RBC 0-2 /hpf (0-2) 06/08/25 20:31 Urine WBC 6-10 /hpf (0-5) 06/08/25 20:31 Ur Squamous Epith Cells 0-5 /hpf (0-5) 06/08/25 20:31 Amorphous Sediment Not Reportable 06/08/25 20:31 Urine Bacteria 4+ /hpf (NONE) H 06/08/25 20:31 Hyaline Casts 0-4 /lpf H 06/08/25 20:31 All radiology interpretation(s) finalized by discharge EKG Data EKG 1: I personally reviewed and interpreted this EKG as follows: Interpretation: EKG 06/08/2025 1808 sinus rhythm with left anterior fascicular block rate of 82 TN interval 166 QTc 451. LVH present no acute ST changes. There is a previous EKG in the system 03/06/2018. Previous EKG showed sinus bradycardia left anterior fascicular block is new. Discharge Plan Discharge Patient Disposition: Home Clinical Impression: Cystitis, Meningioma Hypertension Qualifiers: Hypertension type: essential hypertension Qualified Code(s): I10 - Essential (primary) hypertension Condition: Stable Prescriptions: New metoprolol succinate [Toprol XL] 25 mg tablet extended release 24 hr 25 mg PO DAILY Qty: 30 0RF losartan 50 mg tablet 50 mg PO DAILY Qty: 30 0RF cephalexin 500 mg capsule 500 mg PO TID 7 Days Qty: 21 0RF No Action (DME) bilateral pedraza balance braces See Rx Instructions .Route .MEDSUPPLY Qty: 1 0RF Rx Instructions: As directed to the shoe guys biotin 1 mg capsule 1 mg PO DAILY Calcium 2 gummy PO DAILY Elderberry PO epinephrine [EpiPen] 0.3 mg/0.3 mL auto-injector 0.3 mg IM Q15M PRN (Reason: anaphylaxis) Qty: 2 1RF atorvastatin [Lipitor] 40 mg tablet 40 mg PO DAILY Qty: 30 6RF clopidogrel [Plavix] 75 mg tablet 75 mg PO DAILY Qty: 21 0RF Rx Instructions: Take one tab daily for 3 weeks aspirin 81 mg tablet 81 mg PO DAILY Qty: 30 3RF losartan 25 mg tablet 25 mg PO DAILY Qty: 30 3RF Discharge Orders: Discharge ED (Routine); Ordered 06/08/25 Ordered By: Travis Espinoza Referrals: Stephon Santamaria MD [Primary Care Provider, Family Practice] Discharge Diet: Usual diet Discharge Activity: Increase activity as tolerated Patient Instructions: Meningioma (ED), Hypertension (ED), Opioid Safety, Pain Management, Patient Portal & [place] Instructions Activity Restrictions/Additional Instructions: Thank you for choosing [facility] for your healthcare needs today. It is very important that you follow up as instructed or that you return to the Emergency Department should you have concerns or if your condition changes or worsens in any way. Emergency department visits are focused on emergent conditions, in some cases you may require further evaluation on an outpatient basis. You were seen in the emergency room with complaints of generally feeling unwell and weak. We reviewed the MRI and it shows a meningioma on the right side of the brain. These are generally benign and can be monitored. Discussed the results with your primary care doctor at this time there is no emergent condition. You were noted while here to have markedly elevated blood pressure. You were given antihypertensives in the emergency room which did improve his blood pressure. Will discharge you home recommend that you increase your losartan to 50 mg a day start metoprolol XL 25 mg daily and follow-up with your primary care doctor within the next week to reevaluate your blood pressure (Please note that included in your discharge packet is information concerning opioid safety and pain management. This information is given to all patients were discharged from the ER regardless of their discharge diagnosis or the medicines they usually take or are prescribed.) Print Language: Chadian Coding Level of Care Code ED Steel Barrel Reamer for Tana Barlow
[2025-06-08 20:30] LABS: Alanine Aminotransferase 18 U/L (0-33); Albumin Level 5.0 g/dL (3.5-5.2); Alkaline Phosphatase 117 U/L (35-105); Anion Gap 17.3 (5-19); Aspartate Amino Transferase 24 U/L (0-32); Blood Urea Nitrogen 15 mg/dL (8-23); Calcium 10.0 mg/dL (8.5-10.5); Carbon Dioxide 26 mmol/L (22-29); Chloride 103 mmol/L (98-107); Globulin 3.4 g/dL (1.3-4.6); Glucose 90 mg/dL (65-115); Lipase 62 U/L (13-60); Osmolality Calculated 296 mOsm/kg (285-295); Potassium 3.3 mmol/L (3.5-5.1); Sodium 143 mmol/L (136-145); Total Protein 8.4 g/dL (6.6-8.7)
[2025-06-08 20:53] LABS: Glucose Urine UA Negative (Normal); Nitrate Urine Positive (Negative); Specific Gravity, Urine 1.011 (1.005-1.030)
[2025-06-08] MEDS: labetalol 5 mg/mL SDV 20mL 10 MG IVP (20:56)
[2025-06-08] MEDS: hyDRALAzine 20 mg/mL INJ 1 mL IVP (20:56)
[2025-06-08 20:58] LABS: Add Urine Microscopic? YES
== END 2025-06-08 23:11 | disposition home or self-care (01) ==
PROVIDERS: Emergency Medicine; Emergency Provider Family Medicine; PCP Family Medicine
DX: N30.90 Cystitis, unspecified without hematuria (principal); D32.9 Benign neoplasm of meninges, unspecified; I10 Essential (primary) hypertension; Z79.02 Long term (current) use of antithrombotics/antiplatelets; Z79.82 Long term (current) use of aspirin; E78.5 Hyperlipidemia, unspecified
CPT/HCPCS: 71045; 80053; 81001; 83690; 85025; 87077; 87086; 87186; 93005; 96374; 96375; 99285; J0360; J3490